=== PATIENT | female | born 1995 | race Caucasian/White ===

== ENCOUNTER 2020-04-06 10:30 | Outpatient (CLI) | payer OTHER ==
[2020-04-06 20:36] LABS: TRICHOMONAS VAGINALIS DNA NEGATIVE (NEGATIVE)
== END 2020-04-06 23:59 | disposition home or self-care (01) ==
LOC: LAB.R 10:30
PROVIDERS: ATTEND Radiology Diagnostic Radiology
DX: Z36.85 Encounter for antenatal screening for Streptococcus B (principal); Z34.90 Encounter for supervision of normal pregnancy, unspecified, unspecified trimester; Z11.3 Encounter for screening for infections with a predominantly sexual mode of transmission
CPT/HCPCS: 87491; 87591; 87661; 87797

== ENCOUNTER 2020-06-06 07:42 | Emergency (ER) | payer OTHER ==
[2020-06-06] MEDS ORDERED: SODIUM CHLORIDE 0.9% 1,000 ML IV STA (08:13)
--- NOTE | 2020-06-06 08:33 | ED Physician Documentation ---
History of Present Illness - Stated complaint Stated Complaint: FEM - Chief complaint Chief Complaint: Abd Pain - History obtained from History obtained from: Patient - Additonal information Additional information: Patient comes emergency department complaining of vaginal bleeding that started about 2 days ago after going for a run. Patient states that she is approximately 1 month after going through a normal spontaneous vaginal delivery which was uncomplicated. Patient states that the amount of flow she is experiencing is similar to a heavier period. She states that she has been using about 1 pad per hour during the day, maybe 2 sometimes. She denies lightheadedness or fatigue. She states she felt a little "dizzy" yesterday, but after taking a nap and drinking some water, she felt fine. Patient has been breast-feeding. She states that her lochia had completely resolved about a week before this current bleeding started, and that prior to resolution, the bleeding had been very very light. Patient denies any abdominal pain. No fevers. She states she is otherwise healthy. No recent symptoms of illness. No other complaints at this time. She states she has had 2 other children and has never had anything like this happen before. Review of Systems Ten Systems: 10 systems reviewed and negative Constitutional: reports: Reviewed and negative Eyes: reports: Reviewed and negative Ears: reports: Reviewed and negative Nose: reports: Reviewed and negative Throat: reports: Reviewed and negative Cardiac: reports: Reviewed and negative Respiratory: reports: Reviewed and negative GI: reports: Reviewed and negative : reports: Vaginal bleeding Skin: reports: Reviewed and negative Musculoskeletal: reports: Reviewed and negative Neurologic: reports: Reviewed and negative Psychiatric: reports: Reviewed and negative Endocrine: reports: Reviewed and negative Immunocompromised: reports: Reviewed and negative PD PAST MEDICAL HISTORY - Past Medical History Cardiovascular: None Respiratory: None Neuro: None Endocrine/Autoimmune: None GI: None : None Musculoskeletal: None Derm: None - Allergies Allergies/Adverse Reactions: Allergies Allergy/AdvReac Type Severity Reaction Status Date / Time No Known Drug Allergies Allergy Verified 06/06/20 07:55 - Social History Does the pt smoke?: No Smoking Status: Never smoker Does the pt drink ETOH?: No Does the pt have substance abuse?: No - Immunizations Immunizations are current?: Yes - POLST Patient has POLST: No PD ED PE NORMAL - Vitals Vital signs reviewed: Yes - General General: Alert and oriented X 3, No acute distress - HEENT HEENT: Atraumatic, PERRL, EOMI, Moist mucous membranes - Neck Neck: Supple, no meningeal sign - Cardiac Cardiac: RRR, No murmur - Respiratory Respiratory: No respiratory distress, Clear bilaterally - Abdomen Abdomen: Soft, Non tender, Non distended - Derm Derm: Normal color, Warm and dry, No rash - Extremities Extremities: No deformity, No edema, No calf tenderness / cord - Neuro Neuro: Alert and oriented X 3, 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, No motor deficit, Normal speech, Other (Grossly normal) - Psych Psych: Normal mood, Normal affect Results - Vitals Vitals: Vital Signs - 24 hr 06/06/20 06/06/20 07:50 09:55 Temperature 36.8 C 36.7 C Heart Rate 82 67 Respiratory 16 16 Rate Blood Pressure 128/94 H 118/77 O2 Saturation 100 100 Oxygen O2 Source Room air - Labs Labs: Laboratory Tests 06/06/20 06/06/20 06/06/20 08:25 08:30 08:30 WBC 5.7 RBC 4.86 Hgb 13.1 Hct 41.8 MCV 86.0 MCH 27.0 MCHC 31.3 L RDW 18.3 H Plt Count 227 MPV 10.9 H Neut # (Auto) 3.1 Lymph # (Auto) 1.8 [place] # (Auto) 0.4 Eos # (Auto) 0.4 Baso # (Auto) 0.1 Absolute Nucleated RBC 0.00 Nucleated RBC % 0.0 PT 11.6 INR 1.0 Sodium Potassium Chloride Carbon Dioxide Anion Gap BUN Creatinine Estimated GFR (MDRD) Glucose Calcium Total Bilirubin AST ALT Alkaline Phosphatase Total Protein Albumin Globulin Albumin/Globulin Ratio Lipase Blood Type O POSITIVE Antibody Screen NEGATIVE 06/06/20 08:30 WBC RBC Hgb Hct MCV MCH MCHC RDW Plt Count MPV Neut # (Auto) Lymph # (Auto) [place] # (Auto) Eos # (Auto) Baso # (Auto) Absolute Nucleated RBC Nucleated RBC % PT INR Sodium 138 Potassium 4.3 Chloride 104 Carbon Dioxide 26 Anion Gap 8.0 BUN 10 Creatinine 0.7 Estimated GFR (MDRD) 101 Glucose 93 Calcium 9.2 Total Bilirubin 0.6 AST 18 ALT 21 Alkaline Phosphatase 75 Total Protein 7.6 Albumin 4.3 Globulin 3.3 Albumin/Globulin Ratio 1.3 Lipase 38 Blood Type Antibody Screen - Rads (name of study) pelvic US Radiology: Final report received, EMP read indepedently, See rad report (No retained products of conception. Endometrium is not thickened. No other a bnormal findings.) PD MEDICAL DECISION MAKING - ED course Complexity details: reviewed old records, reviewed results, re-evaluated pat ient, considered differential, d/w patient ED course: The patient was worked up with labs, as well as ultrasound of the pelvis, and given 1 L bolus of 0.9 normal saline. The patient was found to have normal H&H, which was not significantly changed since her last labs on May 01. She remained hemodynamically stable throughout her stay in the emergency. Pelvic ultrasound was also reassuring. I discussed with the patient that she is at the right time to be having her first menses, and that this can frequently be heavier than a normal period would be. The patient is completely asymptomatic, and I feel she is stable for discharge home. We have discussed home management of the symptoms, as well as the need for follow-up. The patient has a follow-up appointment already scheduled for this coming week with her OB and should plan to keep this. We have discussed the usual indications for return. Departure - Departure Disposition: 01 Home, Self Care Clinical Impression: bleeding Qualifiers: hemorrhage type: unspecified Qualified Code(s): O72.1 - Other immediate hemorrhage Condition: Stable Instructions: ED Bleed Irregular Vaginal Comments: As we have discussed, your ultrasound looks good, and your blood counts do not show any significant blood loss. Most likely, you have returned to your normal menstruation, which can be somewhat irregular or heavier for the first cycle after . There is no evidence that you have damaged anything by returning to exercise at this point. You are free to use tampons if you would like, as long as you are not experiencing any vaginal or cervical discomfort. You may also exercise, as tolerated. Please keep your follow-up appointment for later this week with your [facility] OPERATOR. Discharge Date/Time: 06/06/20 10:08
[2020-06-06 08:43] LABS: BASOPHILS # (AUTO) 0.1 10^3/uL (0.0-0.1); BASOPHILS % (AUTO) 0.9 %; EOSINOPHILS # (AUTO) 0.4 10^3/uL (0.0-0.7); EOSINOPHILS % (AUTO) 6.2 %; HGB - HEMOGLOBIN 13.1 g/dL (12.0-16.0); LYMPHOCYTES # (AUTO) 1.8 10^3/uL (1.5-3.5); LYMPHOCYTES % (AUTO) 32.2 %; MEAN CORPUSCULAR HGB CONC 31.3 g/dL (32.0-36.0); MEAN PLATELET VOLUME 10.9 fL (7.9-10.8); MONOCYTES # (AUTO) 0.4 10^3/uL (0.0-1.0); MONOCYTES % (AUTO) 6.9 %; NEUTROPHILS # (AUTO) 3.1 10^3/uL (1.5-6.6); NEUTROPHILS % (AUTO) 53.6 %; PLT - PLATELET COUNT 227 10^3/uL (130-450); RED BLOOD COUNT 4.86 10^6/uL (4.20-5.40); RED CELL DISTRIBUTION WIDTH 18.3 % (12.0-15.0); WHITE BLOOD COUNT 5.7 x10^3/uL (4.8-10.8)
[2020-06-06 08:47] LABS: PT - PROTHROMBIN TIME 11.6 secs (9.9-12.6)
[2020-06-06 08:54] LABS: ALBUMIN 4.3 g/dL (3.2-5.5); ALBUMIN/GLOBULIN RATIO 1.3 (1.0-2.2); BILIRUBIN,TOTAL 0.6 mg/dL (0.2-1.0); CALCIUM 9.2 mg/dL (8.5-10.3); CREATININE 0.7 mg/dL (0.4-1.0); TOTAL PROTEIN 7.6 g/dL (6.7-8.2)
[2020-06-06 10:08] VITALS: BP 118/77
--- NOTE | 2020-06-06 12:13 | Ultrasound Report ---
PROCEDURE: Pelvic w/Transvag+Doppler Comp INDICATIONS: pelvic pain, R TECHNIQUE: Real-time scanning was performed of the pelvic organs, with image documentation. Additional endovagi nal scanning was necessary due to incomplete visualization of the adnexal and endometrial structures by transabdominal scanning. COMPARISON: None. FINDINGS: Transabdominal scanning: Limited scanning through the kidneys shows no hydronephrosis. No pathologi c free abdominal or pelvic fluid. Endovaginal scanning: Uterus: Uterus is normal in size at 9.6 x 4.7 x 6.4 cm. The endometrium measures 5 mm in combined t hickness. A 5 x 3 x 8 mm cystic structure can be seen along the endometrial stripe. No definite abno rmal vascularity can be seen along the endometrial stripe. Ovaries: The right ovary measures 4.2 x 1.5 x 1.6 cm and the left ovary measures 3.2 x 1.3 x 1.4 cm . No ovarian abnormalities are seen. Normal-appearing color Doppler flow is seen within each ovary, w ith normal appearing arterial waveforms seen. Less than 12 follicles can be seen within each ovary. N o adnexal masses are seen. IMPRESSION: Unremarkable endometrial stripe, without findings of retained brace of conception. Note: Concordant preliminary findings given by the electric detector operator upon the completion of the examination to Dr. Ritchie at 9:29 AM on 06/06/2020. Reviewed by: José Antonio Ballard MD on 06/06/2020 11:12 AM AVIS Approved by: José Antonio Ballard MD on 06/06/2020 11:12 AM AVIS Station ID: [id number]
== END 2020-06-06 10:08 | disposition home or self-care (01) ==
LOC: ED 07:42
DX: O72.2 Delayed and secondary postpartum hemorrhage (principal)
CPT/HCPCS: 36415; 76856; 80053; 83690; 85025; 85610; 86850; 86900; 86901; 93975; 96360; 99285

== ENCOUNTER 2020-07-04 14:40 | Emergency (ER) | payer OTHER ==
[2020-07-04] MEDS ORDERED: BUFFERED LIDOCAINE 10 ML SYRINGE SUBQ STA (14:47)
--- NOTE | 2020-07-04 14:48 | ED Physician Documentation ---
PD HPI UPPER EXT INJURY - Stated complaint Stated Complaint: LT FINGER LAC - History obtained from History obtained from: Patient (This is a right-handed woman, active duty in the [employer], she accidentally cut her left index finger with a knife while cooking at home just prior to arrival.) Review of Systems Constitutional: reports: Reviewed and negative Cardiac: reports: Reviewed and negative Respiratory: reports: Reviewed and negative PD PAST MEDICAL HISTORY - Past Medical History Cardiovascular: None Respiratory: None Neuro: None Endocrine/Autoimmune: None GI: None : None Musculoskeletal: None Derm: None - Allergies Allergies/Adverse Reactions: Allergies Allergy/AdvReac Type Severity Reaction Status Date / Time No Known Drug Allergies Allergy Verified 06/06/20 07:55 - Social History Does the pt smoke?: No Smoking Status: Never smoker Does the pt drink ETOH?: No Does the pt have substance abuse?: No - Immunizations Immunizations are current?: Yes - POLST Patient has POLST: No PD ED PE NORMAL - Vitals Vital signs reviewed: Yes - General General: Alert and oriented X 3, No acute distress - Extremities Extremities: Other (There is a 1 cm laceration on the palmar part of the proximal phalanx of the left second finger. Normal distal neurovascular function. Tendon status will be assessed after anesthetic) - Neuro Neuro: Alert and oriented X 3, Normal speech Results - Vitals Vitals: Vital Signs - 24 hr 07/04/20 14:45 Temperature 36.5 C Heart Rate 77 Respiratory 16 Rate Blood Pressure 140/90 H O2 Saturation 100 Oxygen O2 Source Room air Procedures - Laceration (location) L 2nd finger Length in cm: 1.5 Wound type: Linear Neurovascular status: Sensory intact, Motor intact, Vascular intact Tendon involvement: Tendon intact Anesthesia: Lidocaine 1%, With bicarb Wound Preparation: Irrigated copiously NS Skin layer closure: Nylon, Size #-0 - enter number (4-0), Sutures - enter # (4) Other: Patient tolerated well, No complications, Neurovascular intact, Tetanus UTD Complexity: Simple Departure - Departure Disposition: 01 Home, Self Care Clinical Impression: Laceration without foreign body of left index finger without damage to nail, in itial encounter Condition: Good Record reviewed to determine appropriate education?: Yes Instructions: ED Laceration Hand Comments: Come back for any signs of infection which would include: Redness, swelling, drainage, increased pain, or fevers. You can wash it soap and water. Keep it covered and moist with bacitracin ointment which is available over the counter; avoid neosporin. Follow-up with your physician in 10-14 days for suture removal.
[2020-07-04 15:05] VITALS: BP 120/82
== END 2020-07-04 15:12 | disposition home or self-care (01) ==
LOC: ED 14:40
DX: S61.211A Laceration without foreign body of left index finger without damage to nail, initial encounter (principal); W26.0XXA Contact with knife, initial encounter; Y93.G1 Activity, food preparation and clean up; Y92.009 Unspecified place in unspecified non-institutional (private) residence as the place of occurrence of the external cause
CPT/HCPCS: 12001; 12011; 99282; 99283